=== PATIENT | male | born 1965 | race American Indian/Alaskan Native ===

== ENCOUNTER 2018-02-17 21:27 | Emergency (ER) | payer MEDICARE, MEDICAID ==
[~2018-02-17] VITALS: Ht 177.8 cm; Wt 75.0 kg
[~2018-02-17 21:27] MED LIST: DOCU250C14; LACTULOSE
[2018-02-18 01:39] VITALS: BP 121/79
== END 2018-02-18 01:42 | disposition home or self-care (01) ==
LOC: ER 23:30
DX: T85.3 Mechanical complication of other ocular prosthetic devices, implants and grafts (principal); Y83.8 Other surgical procedures as the cause of abnormal reaction of the patient, or of later complication, without mention of misadventure at the time of the procedure
CPT/HCPCS: 99283

== ENCOUNTER 2021-10-17 13:00 | Emergency (ER) | payer MEDICARE, MEDICAID ==
[~2021-10-17] VITALS: Ht 167.6 cm; Wt 85.0 kg
[2021-10-17 13:04] VITALS: BP 114/64
[2021-10-17] MEDS ORDERED: ONDANSETRON HCL 4MG/2ML INJ IV ONE (13:30)
== END 2021-10-17 14:34 | disposition left against medical advice (07) ==
LOC: ER 13:12
DX: R11.2 Nausea with vomiting, unspecified (principal); Z53.21 Procedure and treatment not carried out due to patient leaving prior to being seen by health care provider
CPT/HCPCS: 99281

== ENCOUNTER 2025-01-03 17:00 | Emergency (ER) | payer BC, MEDICAID, MEDICARE ==
[~2025-01-03] VITALS: Ht 177.8 cm; Wt 77.0 kg
[2025-01-03 19:00] VITALS: BP 128/84; PULSE 100; RESP 18; TEMP 36.8; O2SAT 99
== END 2025-01-03 18:59 ==
LOC: ER 17:00
DX: M79.672 Pain in left foot (principal); I50.9 Heart failure, unspecified; Z65.3 Problems related to other legal circumstances
CPT/HCPCS: 99283